=== PATIENT | male | born 1950 | race Native Hawaiian/Other Pacific Islander ===

== ENCOUNTER 2017-01-18 12:38 | Inpatient (IN) | payer OTHER ==
[2017-01-18] MEDS ORDERED: Sodium Chloride 0.9% 500 ML IV ONE ×2 (13:27→13:38)
--- NOTE | 2017-01-18 13:48 | RAD ---
PROCEDURE: Radiographs of the chest and abdomen (obstructive series) HISTORY: RUQ pain COMPARISON: No prior. TECHNIQUE: AP radiograph of the chest, with upright and supine radiographs of the abdomen. FINDINGS: CHEST: Lungs: Shallow lung volumes. Probable minimal discoid atelectatic changes left lung base Cardiovascular: Mild cardiomegaly No pulmonary vascular congestion. Pleura: No pleural fluid. No pneumothorax. Other findings: None. ABDOMEN AND PELVIS: Bowel: Moderate gas in top-normal small bowel loops. Gas and stool in colon especially cecum. No evidence of mechanical obstruction. Free air: None. Bones: Prominent scoliosis lumbar level convexity rightward. Lumbar spondylosis L2-3 and L3-4 disc space narrowing Other findings: Central right hemipelvic phleboliths IMPRESSION: Nonspecific bowel gas pattern. No gross mechanical high-grade obstruction. Moderate right cecal stool retention. No infiltrate. Trace discoid atelectasis left lung base Scoliosis, spondylosis and degenerative disc disease - lumbar level
[2017-01-18 13:53] LABS: BASO % 0.2 % (0.0-2.0); EOS % 0.1 % (0.0-4.0); HEMATOCRIT 44.1 % (35.0-51.0); LYMPH # 0.8 K/uL (1.0-4.3); LYMPH % 4.8 % (20.0-40.0); MEAN CELL VOLUME 89.9 fL (80.0-94.0); MEAN CORPUSCULAR HEMOGLOBIN 31.1 pg (27.0-31.0); MEAN CORPUSCULAR HGB CONC 34.6 g/dL (33.0-37.0); MEAN PLATELET VOLUME 8.9 fL (7.2-11.7); MONO # 1.4 K/uL (0.0-0.8); MONO % 8.3 % (0.0-10.0); NRBC % 0.2 % (0.0-2.0); PLATELET COUNT 233 K/uL (130-400); RED CELL DISTRIBUTION WIDTH 12.9 % (11.5-14.5); WHITE BLOOD COUNT 17.3 K/uL (4.8-10.8)
[2017-01-18 14:00] LABS: INR 1.1
[2017-01-18 14:01] LABS: CHLORIDE 89 mmol/L (98-107); POTASSIUM 3.7 mmol/L (3.6-5.2); SODIUM 133 mmol/L (132-148)
[2017-01-18 14:03] LABS: ALB/GLOB RATIO 1.2 (1.0-2.1); ALKALINE PHOSPHATASE 66 U/L (38-126); AST/SGOT 31 U/L (17-59); BILIRUBIN,TOTAL 1.4 mg/dL (0.2-1.3); BLOOD UREA NITROGEN 12 mg/dL (9-20); CARBON DIOXIDE 28 mmol/L (22-30); GFR AFRICAN-AMERICAN > 60
[2017-01-18 14:04] LABS: ALT/SGPT 45 U/L (21-72); CALCIUM 9.3 mg/dl (8.6-10.4); GLUCOSE,RANDOM 188 mg/dL (75-110)
[2017-01-18 14:11] LABS: RBC URINE 4 /hpf (0-3); URINE BILIRUBIN NEGATIVE (NEGATIVE); URINE BLOOD 1+ (NEGATIVE); URINE COLOR Yellow (YELLOW); URINE GLUCOSE (UA) 3+ mg/dL (Normal); URINE KETONE TRACE mg/dL (NEGATIVE); URINE LEUKOCYTE ESTERASE NEG Leu/uL (Negative); URINE PROTEIN NEGATIVE (NEGATIVE); URINE UROBILINOGEN NORMAL mg/dL (0.2-1.0); WBC URINE 1 /hpf (0-5)
[2017-01-18] MEDS ORDERED: Iohexol 240 (50 ml) PO STA (14:31)
[2017-01-18] MEDS ORDERED: Iohexol 240 (50 ml) ONE (14:50)
[2017-01-18 15:48] LABS: NEUTROPHIL 88 % (50-75); TOTAL CELLS COUNTED 100
[2017-01-18] MEDS ORDERED: Iohexol 350mg/ml 100 ML ONE (16:04)
--- NOTE | 2017-01-18 17:18 | CT ---
PROCEDURE: CT Abdomen and Pelvis with oral and IV contrast. HISTORY: abd pain COMPARISON: Obstructive series performed 01/18/17 TECHNIQUE: Contiguous axial images of the abdomen and pelvis. Oral and IV contrast was administered. Coronal and Sagittal reformats generated and reviewed. Contrast dose: 100 cc Omnipaque 350 Radiation dose: Total exam DLP = 425.43 mGy-cm. This CT exam was performed using one or more of the following dose reduction techniques: Automated exposure control, adjustment of the mA and/or kV according to patient size, and/or use of iterative reconstruction technique. FINDINGS: LOWER THORAX: Bibasilar atelectasis/infiltrates. No visible pleural effusion or pneumothorax. LIVER: Hypoattenuation of the liver compatible with hepatic steatosis. GALLBLADDER AND BILE DUCTS: Distended gallbladder. No calcified gallstones identified. PANCREAS: Unremarkable. SPLEEN: Unremarkable. ADRENALS: Nodular hypertrophy of the left adrenal gland. The right adrenal gland appears unremarkable. KIDNEYS AND URETERS: The kidneys enhance symmetrically. No hydronephrosis or obstructing renal calculus. BLADDER: The urinary bladder appears unremarkable. REPRODUCTIVE: Prostate gland appears enlarged. APPENDIX: The appendix appears within normal limits of caliber. No secondary signs of acute appendicitis. BOWEL: The stomach is nondistended. The bowel loops appear within normal limits of caliber without evidence of intestinal obstruction. Moderate constipation. PERITONEUM: No significant free fluid. No definite free air. LYMPH NODES: No bulky lymphadenopathy identified. VASCULATURE: Atherosclerotic calcifications. No aortic aneurysm. BONES: Scoliosis. Multilevel degenerative changes. OTHER FINDINGS: None. IMPRESSION: Bibasilar atelectasis/ infiltrates. Hepatic steatosis. Distended gallbladder. No calcified gallstones identified. Recommend right upper quadrant ultrasound for further evaluation. Nodular hypertrophy of the left adrenal gland. Moderate constipation. Enlarged prostate gland. Recommend correlation with PSA.
--- NOTE | 2017-01-18 18:29 | US ---
HISTORY: RUQ pain COMPARISON: CT abdomen and pelvis with contrast performed 01/18/17 TECHNIQUE: Sonographic evaluation of the right upper quadrant of the abdomen. FINDINGS: Examination limited by bowel gas. LIVER: Measures 14.9 cm in length. Echogenic liver may be seen in setting of hepatic parenchymal disease or fatty infiltration. No focal hepatic mass identified. The main portal vein appears patent with normal directional flow. No intrahepatic bile duct dilatation. GALLBLADDER: Immobile gallstone at the gallbladder neck. No gallbladder wall thickening or pericholecystic edema. Negative sonographic Li's sign as assessed by the evp and chief operating officer. COMMON BILE DUCT: Measures 4 mm. No stones. No dilatation. PANCREAS: Not well-visualized. RIGHT KIDNEY: Measures 10.1 x 4.9 x 5.3 cm. No obstructing calculus or hydronephrosis identified. AORTA: Limited visualization appears grossly unremarkable. IVC: Limited visualization appears grossly unremarkable. OTHER FINDINGS: None . IMPRESSION: Examination limited by bowel gas. Immobile gallstone at the gallbladder neck. No gallbladder wall thickening or pericholecystic edema. Negative sonographic Li's sign as assessed by the evp and chief operating officer. Echogenic liver may be seen in setting of hepatic parenchymal disease or fatty infiltration.
[2017-01-18] MEDS ORDERED: Ciprofloxacin 400mg/200ml D5W 400 MG/200 ML BAG IVPB STA (18:47)
[2017-01-18] MEDS ORDERED: Ciprofloxacin 400mg/200ml D5W 400 MG/200 ML BAG IVPB ONE (19:01)
--- NOTE | 2017-01-18 20:07 | C.PDOC ---
Time Seen by Provider: 01/18/17 13:14 Chief Complaint (Nursing): Abdominal Pain History Per: Patient Onset/Duration Of Symptoms: Days (1) Current Symptoms Are (Timing): Still Present Severity: Moderate Location Of Pain/Discomfort: RUQ Quality Of Discomfort: "Pain" Associated Symptoms: Nausea Alleviating Factors: None Additional History Per: Prior Records Past Medical History Reviewed: Historical Data, Nursing Documentation, Vital Signs Vital Signs: Last Vital Signs Temp 98.5 F 01/18/17 18:32 Pulse 88 01/18/17 18:32 Resp 16 01/18/17 18:32 BP 132/74 01/18/17 18:32 Pulse Ox 96 01/18/17 20:07 - Medical History PMH: Diabetes, HTN Surgical History: No Surg Hx Family History: States: Unknown Family Hx - Social History Hx Alcohol Use: Yes Hx Substance Use: No Review Of Systems Except As Marked, All Systems Reviewed And Found Negative. Constitutional: Negative for: Fever, Weakness Cardiovascular: Negative for: Chest Pain Respiratory: Negative for: Shortness of Breath Gastrointestinal: Positive for: Abdominal Pain Genitourinary: Negative for: Dysuria Musculoskeletal: Negative for: Neck Pain Skin: Negative for: Rash Neurological: Negative for: Weakness, Numbness Physical Exam - Physical Exam Appears: Non-toxic, No Acute Distress Skin: Normal Color, Warm, Dry, No Rash Head: Atraumatic, Normacephalic Eye(s): bilateral: Normal Inspection, PERRL, EOMI Neck: Normal ROM, Supple Cardiovascular: Rhythm Regular Respiratory: Normal Breath Sounds, No Accessory Muscle Use Gastrointestinal/Abdominal: Soft, Tenderness (RUQ) Back: No CVA Tenderness Extremity: Normal ROM Neurological/Psych: Oriented x3, Normal Motor, Normal Sensation ED Course And Treatment - Laboratory Results Result Diagrams: 01/18/17 13:46 01/18/17 13:46 Lab Interpretation: Abnormal Interpretation Of Abnormal: Leukocytosis O2 Sat by Pulse Oximetry: 96 Pulse Ox Interpretation: Normal - CT Scan/US CT abd/pelv Other Rad Studies (CT/US): Read By Radiologist, Radiology Report Reviewed CT/US Interpretation: IMPRESSION: Bibasilar atelectasis/ infiltrates. Hepatic steatosis. Distended gallbladder. No calcified gallstones identified. Recommend right upper quadrant ultrasound for further evaluation. Nodular hypertrophy of the left adrenal gland. Moderate constipation. Enlarged prostate gland. Recommend correlation with PSA. RUQ Sono Other Rad Studies (CT/US): Read By Radiologist, Radiology Report Reviewed CT/US Interpretation: IMPRESSION: Examination limited by bowel gas. Immobile gallstone at the gallbladder neck. No gallbladder wall thickening or pericholecystic edema. Negative sonographic Li's sign as assessed by the buyer broker. Echogenic liver may be seen in setting of hepatic parenchymal disease or fatty infiltration. Disposition Discussed With DrAruna: Bryce Mcgrath Comment: He accepted pt on hospitalist service. He will consult general surgeon. Doctor Will See Patient In The: Hospital Counseled Patient/Family Regarding: Studies Performed, Diagnosis - Disposition Disposition: HOSPITALIZED Disposition Time: 20:19 Condition: FAIR - Clinical Impression Clinical Impression: Impacted gallstone of gallbladder, Leukocytosis, RUQ abdominal pain
[2017-01-18] MEDS ORDERED: Sodium Chloride 0.9% 1,000 ML IV SCH (21:00)
[2017-01-18] MEDS ORDERED: Ciprofloxacin 400mg/200ml D5W 400 MG/200 ML BAG IVPB SCH (21:00)
--- NOTE | 2017-01-18 21:32 | CP.PCM.HP ---
<Girma Maldonado E - Last Filed: 01/18/17 22:53> History of Present Illness - History of Present Illness History of Present Illness: CC: RUQ abdominal Pain HPI: Patient is a 66 year old male with past medical history of DM and HTN, who presents to the ED with complaints of RUQ abdominal pain that started yesterday morning. Patient is unable to describe his pain but states his pain is a constant 6/10 without any radiation and has progressively worsened. Patient states that his pain is alleviated with standing and frequent positional changes and nothing worsens his pain. Patient denies exacerbation of his pain with eating. Patient denies fever, chills, nausea, vomiting, chest pain, palpitations, diaphoresis, SOB, diarrhea, constipation, stool changes, back pain , shoulder pain, skin color changes but did admit to night sweats and heart burn. PMD: Dr. Soni PMHx: DM, HTN PSHx: Right forearm cyst removal FHx: - Father: CVA, -Sister: Rheumatic heart disease, DM type 2 - Brother: DM type 2 Medications: Metformin 500mg BID, Cozaar 100mg PO daily Allergies: NKDA Social History: Lives with his , daughter and son-in-law . retired senior quality analyst/ warehouse shipment clergy. Denies tobacco and illicit drug use but admits occasional ETOH (2-3 beers on the weekend) Medications given in the ED: Cipro 400mg IVPB, Pepcid 20mg IV, Toradol 30mg IV, Reglan 10mg IV and NS 500mls@100mls/hr Present on Admission - Present on Admission Any Indicators Present on Admission: No Review of Systems - Constitutional Constitutional: Night Sweats. absent: Chills, Excessive Sweating, Fever, Headache - EENT Eyes: absent: Itchy Eyes Ears: absent: Dizziness - Cardiovascular Cardiovascular: absent: Chest Pain, Diaphoresis, Dyspnea, Lightheadedness, Palpitations, Radiating Pain - Respiratory Respiratory: absent: Dyspnea - Gastrointestinal Gastrointestinal: Abdominal Pain, Heartburn. absent: Change in Bowel Habits, Change in Stool Character, Constipation, Cramping, Diarrhea, Nausea, Vomiting - Genitourinary Genitourinary: Change in Urinary Stream, Dysuria. absent: Flank Pain, Urinary Frequency, Urinary Urgency - Musculoskeletal Musculoskeletal: absent: Back Pain - Integumentary Integumentary: absent: Pruritus, Jaundice - Neurological Neurological: absent: Dizziness, Headaches, Weakness Past Patient History - Infectious Disease Hx of Infectious Diseases: None - Past Social History Smoking Status: Never Smoked - CARDIAC Hx Hypertension: Yes - ENDOCRINE/METABOLIC Hx Endocrine Disorders: Yes Hx Diabetes Mellitus Type 2: Yes - PSYCHIATRIC Hx Substance Use: No - SURGICAL HISTORY Hx Surgeries: No Meds Allergies/Adverse Reactions: Allergies Allergy/AdvReac Type Severity Reaction Status Date / Time No Known Allergies Allergy Verified 01/18/17 12:43 Physical Exam - Constitutional Appears: No Acute Distress - Head Exam Head Exam: ATRAUMATIC, NORMAL INSPECTION - Eye Exam Eye Exam: EOMI, Normal appearance Additional comments: Icterus absent - ENT Exam ENT Exam: Mucous Membranes Moist, Normal Exam - Respiratory Exam Respiratory Exam: Clear to Auscultation Bilateral, NORMAL BREATHING PATTERN. absent: Rales, Wheezes - Cardiovascular Exam Cardiovascular Exam: REGULAR RHYTHM, +S1, +S2 - GI/Abdominal Exam GI & Abdominal Exam: Normal Bowel Sounds, Soft Additional comments: RUQ pain Negative li sign - Extremities Exam Extremities exam: Positive for: normal capillary refill, normal inspection. Negative for: calf tenderness, pedal edema, tenderness - Back Exam Back exam: absent: CVA tenderness (L), CVA tenderness (R) - Neurological Exam Neurological exam: Alert, Oriented x3 - Psychiatric Exam Psychiatric exam: Normal Affect, Normal Mood - Skin Skin Exam: Dry, Normal Color, Warm Results - Vital Signs Recent Vital Signs: Last Vital Signs Temp 97.9 F 01/18/17 21:01 Pulse 80 01/18/17 21:01 Resp 18 01/18/17 21:01 BP 116/63 01/18/17 21:01 Pulse Ox 95 01/18/17 21:01 - Labs Result Diagrams: 01/18/17 13:46 01/18/17 13:46 Assessment & Plan (1) RUQ abdominal pain Assessment and Plan: Surgical consult ---> Dr. Morris ( Help appreciated) Stable, Afebrile NPO Labs: WBC: 17.3 Neutrophils % : 86.8 AST/ALT: 31/45 Alk Phosp: 66 Total Bilirubin: 1.4 Imagin. Abdomen Obstructive Series X-ray:Nonspecific bowel gas pattern. No gross mechanical high-grade obstruction. Moderate right cecal stool retention. 2. Abdomen/Pelvis CT:Hepatic steatosis. * Distended gallbladder. No calcified gallstones identified. Recommend right upper quadrant ultrasound for further evaluation. * Nodular hypertrophy of the left adrenal gland. * Moderate constipation. * Enlarged prostate gland. Recommend correlation with PSA. 3. Abdomen Ultrasound: Immobile gallstone at the gallbladder neck. No gallbladder wall thickening or pericholecystic edema. Negative sonographic Li's sign as assessed by the ornamental rail installer. * Echogenic liver may be seen in setting of hepatic parenchymal disease or fatty infiltration Medications: * Cipro 400mg IVPB Q12H * Flagyl 500mg IVPB Q8H * Toradol 30mg IVP Q6 PRN * NS @ 80mls/hr Status: Acute (2) Leukocytosis Assessment and Plan: On admission: * WBC: 17.3 Medications: * Cipro 400mg IVPB Q12H * Flagyl 500mg IVPB Q8H Continue to monitor with routine CBC Status: Acute (3) Hypertension Assessment and Plan: Continue home medication: * Cozaar 100mg PO daily * Continue to monitor with vital checks q4h Status: Acute (4) Diabetes mellitus Assessment and Plan: Accu checks Hold home medication: * Metformin 500mg PO BID Status: Acute (5) Prophylactic measure Assessment and Plan: Ambulating Scds Pepcid 20mg PO BID Florastor 250mg PO BID Status: Acute <Bryce Mcgrath P - Last Filed: 01/29/17 19:31> Results - Vital Signs Recent Vital Signs: Last Vital Signs Temp 98.7 F 01/20/17 15:00 Pulse 84 01/20/17 15:00 Resp 20 01/20/17 15:00 BP 136/78 01/20/17 15:00 Pulse Ox 96 01/20/17 15:00 - Labs Result Diagrams: 01/20/17 06:57 01/20/17 06:57 Attending/Attestation - Attestation I have personally seen and examined this patient.: Yes I have fully participated in the care of the patient.: Yes I have reviewed all pertinent clinical information: Yes
[2017-01-18] MEDS: metroNIDAZOLE IV 500 mg/100 ml 500 MG/100 ML BAG IVPB SCH (21:40)
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
[2017-01-19] MEDS: metroNIDAZOLE IV 500 mg/100 ml 500 MG/100 ML BAG IVPB SCH ×3 (05:52→21:17)
[2017-01-19 06:38] LABS: BASO # 0.1 K/uL (0.0-0.2); BASO % 0.4 % (0.0-2.0); EOS # 0.1 K/uL (0.0-0.7); EOS % 0.7 % (0.0-4.0); HEMATOCRIT 39.5 % (35.0-51.0); LYMPH # 0.9 K/uL (1.0-4.3); LYMPH % 6.3 % (20.0-40.0); MEAN CELL VOLUME 89.5 fL (80.0-94.0); MEAN CORPUSCULAR HGB CONC 34.7 g/dL (33.0-37.0); MEAN PLATELET VOLUME 8.9 fL (7.2-11.7); MONO # 1.4 K/uL (0.0-0.8); MONO % 9.8 % (0.0-10.0); PLATELET COUNT 179 K/uL (130-400); RED CELL DISTRIBUTION WIDTH 12.9 % (11.5-14.5); WHITE BLOOD COUNT 14.2 K/uL (4.8-10.8)
[2017-01-19 06:58] LABS: ALB/GLOB RATIO 1.2 (1.0-2.1); ALKALINE PHOSPHATASE 72 U/L (38-126); ALT/SGPT 42 U/L (21-72); AST/SGOT 35 U/L (17-59); BILIRUBIN,TOTAL 1.7 mg/dL (0.2-1.3); BLOOD UREA NITROGEN 9 mg/dL (9-20); CALCIUM 8.6 mg/dl (8.6-10.4); CARBON DIOXIDE 24 mmol/L (22-30); CHLORIDE 93 mmol/L (98-107); GFR AFRICAN-AMERICAN > 60; GLUCOSE,RANDOM 135 mg/dL (75-110); POTASSIUM 3.3 mmol/L (3.6-5.2); SODIUM 129 mmol/L (132-148); TOTAL PROTEIN 6.4 g/dL (6.3-8.3)
[2017-01-19] MEDS: Ciprofloxacin 400mg/200ml D5W 400 MG/200 ML BAG IVPB SCH ×2 (07:30→19:12)
[2017-01-19 08:38] LABS: EOSINOPHIL 2 % (0-4); NEUTROPHIL 82 % (50-75); TOTAL CELLS COUNTED 100
[2017-01-19] MEDS ORDERED: Lactated Ringer's 1,000 ML IV ONE (15:35)
[2017-01-19] MEDS ORDERED: Midazolam 2 MG/2 ML VIAL ONE (15:36)
[2017-01-19] MEDS ORDERED: Propofol 10 mg/ml Inj (20 ML) ONE (15:36)
[2017-01-19] MEDS ORDERED: Ciprofloxacin 400mg/200ml D5W 400 MG/200 ML BAG IVPB ONE (15:50)
[2017-01-19] MEDS ORDERED: Rocuronium 10 mg/ml (5 ml) ONE (16:05)
[2017-01-19] MEDS ORDERED: Succinylcholine Chloride 20 mg/ml Syr (5 ml) IV ONE (16:05)
[2017-01-19] MEDS ORDERED: HYDROmorphone 0.5 mg/0.5 ml ISec IVP PRN ×2 (16:24→17:13)
[2017-01-19] MEDS ORDERED: Neostigmine Methylsulfate 3mg/3ml Syringe IV ONE (17:05)
--- NOTE | 2017-01-19 17:08 | PCM.SURG1 ---
Surgeon's Initial Post Op Note - Surgeon's Notes Surgeon: MD Arturo Blue Crabber: SOFI BurgessY2. SOFI SinY2. Mauricio, MS4 Pre-Operative Diagnosis: Cholecystitis Operative Findings: inflammed gallbladder Post-Operative Diagnosis: same Operation Performed: Laparoscopic cholecystectomy Specimen/Specimens Removed: gallbladder Estimated Blood Loss: EBL {In ML}: 30 Date of Surgery/Procedure: 01/19/17 Time of Surgery/Procedure: 16:00
[2017-01-19] MEDS ORDERED: HYDROmorphone 1 mg/ml ISec IVP PRN (17:11)
--- NOTE | 2017-01-19 20:23 | CARD ---
APPROVED REPORT EKG Measurement Heart [id number] <Conclusion> Normal sinus rhythm Possible Left atrial enlargement Inferior infarct, age undetermined Abnormal ECG
[2017-01-19] MEDS: (Novolin R) Insulin Human Regular 100 units/ml vial SC SCH ×2 (21:13→21:19)
--- NOTE | 2017-01-19 21:14 | CP.PCM.PN ---
<Misha Corea - Last Filed: 01/19/17 21:12> Subjective - Date & Time of Evaluation Date of Evaluation: 01/19/17 Time of Evaluation: 21:12 - Subjective Subjective: PGY1 Note for Dr. Valenzuela HPI: Patient seen and examined at bedside. Doing well. His only complaint is abdominal pain. States surgery team was in to see him and said they would be taking him to the OR today to take his GB out. All of the patient questions were answered about the procedure and he agreed with the plan Objective - Vital Signs/Intake and Output Vital Signs (last 24 hours): Temp Pulse Resp BP Pulse Ox 98.6 F 95 H 24 134/69 97 01/19/17 19:08 01/19/17 18:00 01/19/17 18:00 01/19/17 17:45 01/19/17 18:00 Intake and Output: 01/19/17 01/20/17 18:59 06:59 Intake Total 1040 Output Total 300 Balance 740 - Medications Medications: Current Medications Acetaminophen (Tylenol 325mg Tab) 975 mg PO Q8 [facility] Last Admin: 01/19/17 19:08 Dose: 975 mg Docusate Sodium (Colace) 100 mg PO DAILY [facility] Last Admin: 01/19/17 09:20 Dose: 100 mg Famotidine (Pepcid) 20 mg PO BID [facility] Last Admin: 01/19/17 19:08 Dose: 20 mg Hydromorphone HCl (Dilaudid) 0.5 mg IVP Q4H PRN PRN Reason: Pain, severe (8-10) Metronidazole (Flagyl) 500 mg in 100 mls @ 100 mls/hr IVPB Q8 [facility] Last Admin: 01/19/17 13:56 Dose: 100 mls/hr Ciprofloxacin (Cipro 400mg/200ml Dsw) 400 mg in 200 mls @ 133 mls/hr IVPB Q12H [facility] Last Admin: 01/19/17 19:12 Dose: 133 mls/hr Potassium Chloride 40 meq/ (Sodium Chloride) 1,020 mls @ 80 mls/hr IV .[id number] [facility] Last Admin: 01/19/17 09:20 Dose: 80 mls/hr Insulin Human Regular (Novolin R) 0 unit SC ACHS [facility] PRN Reason: Protocol Ketorolac Tromethamine (Toradol) 30 mg IVP Q6 PRN PRN Reason: Pain, moderate (4-7) Losartan Potassium (Cozaar) 100 mg PO DAILY [facility] Last Admin: 01/19/17 09:18 Dose: 100 mg - Labs Labs: 01/19/17 06:29 01/19/17 06:29 PT 12.6 SECONDS (9.7-12.2) H 01/18/17 13:46 INR 1.1 01/18/17 13:46 APTT 31 SECONDS (21-34) 01/18/17 13:46 - Constitutional Appears: Well, Non-toxic, No Acute Distress - Head Exam Head Exam: NORMAL INSPECTION - Eye Exam Eye Exam: EOMI - ENT Exam ENT Exam: Mucous Membranes Moist - Respiratory Exam Respiratory Exam: Clear to Ausculation Bilateral, NORMAL BREATHING PATTERN - Cardiovascular Exam Cardiovascular Exam: REGULAR RHYTHM - GI/Abdominal Exam GI & Abdominal Exam: Soft, Tenderness (severe tendernes to palpation in the RUQ) , Normal Bowel Sounds. absent: Distended - Neurological Exam Neurological Exam: Alert, Awake, Oriented x3 - Psychiatric Exam Psychiatric exam: Normal Affect, Normal Mood - Skin Skin Exam: Dry, Intact, Normal Color, Warm Assessment and Plan - Assessment and Plan (Free Text) Assessment: RUQ abdominal pain * Surgery (Morris) * Lap guadalupe today * Abdomen/Pelvis CT: Distended gallbladder. No calcified gallstones identified. * Abdomen Ultrasound: Immobile gallstone at the gallbladder neck. No gallbladder wall thickening or pericholecystic edema. Enlarged Prostate * F/U PSA Constipation * Colace 100 BID Leukocytosis * Cipro 400mg IVPB Q12H * Flagyl 500mg IVPB Q8H Hypertension * Cozaar 100mg PO daily Diabetes mellitus * Accu checks Q6 * Low dose Sliding scale Prophylactic measure * Ambulating * Scds * Pepcid 20mg PO BID * Florastor 250mg PO BID <Audie Valenzuela - Last Filed: 01/20/17 16:59> Objective - Vital Signs/Intake and Output Vital Signs (last 24 hours): Temp Pulse Resp BP Pulse Ox 98.7 F 84 20 136/78 96 01/20/17 15:00 01/20/17 15:00 01/20/17 15:00 01/20/17 15:00 01/20/17 15:00 Intake and Output: 08/31/17 08/31/17 06:59 18:59 Intake Total 760 1440 Balance 760 1440 - Medications Medications: Current Medications Acetaminophen (Tylenol 325mg Tab) 975 mg PO Q8 [facility] Last Admin: 01/20/17 13:14 Dose: 975 mg Docusate Sodium (Colace) 100 mg PO DAILY [facility] Last Admin: 01/20/17 09:20 Dose: 100 mg Famotidine (Pepcid) 20 mg PO BID [facility] Last Admin: 01/20/17 09:21 Dose: 20 mg Hydromorphone HCl (Dilaudid) 0.5 mg IVP Q4H PRN PRN Reason: Pain, severe (8-10) Metronidazole (Flagyl) 500 mg in 100 mls @ 100 mls/hr IVPB Q8 [facility] Last Admin: 01/20/17 13:17 Dose: 100 mls/hr Ciprofloxacin (Cipro 400mg/200ml Dsw) 400 mg in 200 mls @ 133 mls/hr IVPB Q12H [facility] Last Admin: 01/20/17 06:10 Dose: 133 mls/hr Potassium Chloride 40 meq/ (Sodium Chloride) 1,020 mls @ 80 mls/hr IV .[id number] [facility] Last Admin: 01/20/17 06:10 Dose: 80 mls/hr Insulin Human Regular (Novolin R) 0 unit SC ACHS [facility] PRN Reason: Protocol Last Admin: 01/20/17 11:19 Dose: 2 unit Ketorolac Tromethamine (Toradol) 30 mg IVP Q6 PRN PRN Reason: Pain, moderate (4-7) Losartan Potassium (Cozaar) 100 mg PO DAILY [facility] Last Admin: 01/20/17 09:20 Dose: 100 mg - Labs Labs: 01/20/17 06:57 01/20/17 06:57 PT 12.6 SECONDS (9.7-12.2) H 01/18/17 13:46 INR 1.1 01/18/17 13:46 APTT 31 SECONDS (21-34) 01/18/17 13:46 Attending/Attestation - Attestation I have personally seen and examined this patient.: Yes I have fully participated in the care of the patient.: Yes I have reviewed all pertinent clinical information, including history, physical exam and plan: Yes Notes (Text): 01/20/17 16:58 Patient was seen and examined at bedside with the resident Plan for surgery today Patient is medically cleared for the surgical procedure I discussed the plan of care with the resident and agree with the assessment and plan documented
[2017-01-20 00:56] VITALS: RESP 20
[2017-01-20] MEDS: metroNIDAZOLE IV 500 mg/100 ml 500 MG/100 ML BAG IVPB SCH ×2 (05:22→13:17)
[2017-01-20] MEDS: Ciprofloxacin 400mg/200ml D5W 400 MG/200 ML BAG IVPB SCH (06:10)
[2017-01-20 07:12] LABS: BASO % 0.1 % (0.0-2.0); EOS # 0.1 K/uL (0.0-0.7); EOS % 1.2 % (0.0-4.0); HEMATOCRIT 38.5 % (35.0-51.0); LYMPH # 0.7 K/uL (1.0-4.3); LYMPH % 7.8 % (20.0-40.0); MEAN CELL VOLUME 90.4 fL (80.0-94.0); MEAN CORPUSCULAR HGB CONC 34.2 g/dL (33.0-37.0); MEAN PLATELET VOLUME 8.6 fL (7.2-11.7); MONO # 1.2 K/uL (0.0-0.8); MONO % 12.8 % (0.0-10.0); PLATELET COUNT 188 K/uL (130-400); WHITE BLOOD COUNT 9.2 K/uL (4.8-10.8)
[2017-01-20 07:44] LABS: CHLORIDE 99 mmol/L (98-107); POTASSIUM 3.8 mmol/L (3.6-5.2); SODIUM 135 mmol/L (132-148)
[2017-01-20 07:47] LABS: ALKALINE PHOSPHATASE 65 U/L (38-126); ALT/SGPT 62 U/L (21-72); AST/SGOT 53 U/L (17-59); BILIRUBIN,TOTAL 1.2 mg/dL (0.2-1.3); BLOOD UREA NITROGEN 10 mg/dL (9-20); CARBON DIOXIDE 24 mmol/L (22-30); GFR AFRICAN-AMERICAN > 60; GLUCOSE,RANDOM 144 mg/dL (75-110); TOTAL PROTEIN 6.1 g/dL (6.3-8.3)
[2017-01-20 07:48] LABS: CALCIUM 8.1 mg/dl (8.6-10.4)
[2017-01-20] MEDS: (Novolin R) Insulin Human Regular 100 units/ml vial SC SCH ×2 (07:49→11:19)
[2017-01-20 08:15] LABS: PROSTATE SPECIFIC ANTIGEN 0.508 ng/mL (0.00-4.0)
--- NOTE | 2017-01-20 08:20 | CP.PCM.PN ---
Subjective - Date & Time of Evaluation Date of Evaluation: 01/20/17 Time of Evaluation: 08:17 - Subjective Subjective: General Surgery - Dr. Morris Pt S&E. LYNNE. Pt doing well post-operatively. He ambulated twice in the hallway last night. He is tolerating regular diet. Pain is mild and well controled. No F/C, SOb/Cp, N/V. Objective - Vital Signs/Intake and Output Vital Signs (last 24 hours): Temp Pulse Resp BP Pulse Ox 98.6 F 88 20 131/79 95 01/20/17 07:14 01/20/17 07:14 01/20/17 07:14 01/20/17 07:14 01/20/17 07:14 Intake and Output: 01/20/17 01/20/17 06:59 18:59 Intake Total 760 Balance 760 - Medications Medications: Current Medications Acetaminophen (Tylenol 325mg Tab) 975 mg PO Q8 [facility] Last Admin: 01/20/17 05:22 Dose: 975 mg Docusate Sodium (Colace) 100 mg PO DAILY [facility] Last Admin: 01/19/17 09:20 Dose: 100 mg Famotidine (Pepcid) 20 mg PO BID [facility] Last Admin: 01/19/17 19:08 Dose: 20 mg Hydromorphone HCl (Dilaudid) 0.5 mg IVP Q4H PRN PRN Reason: Pain, severe (8-10) Metronidazole (Flagyl) 500 mg in 100 mls @ 100 mls/hr IVPB Q8 [facility] Last Admin: 01/20/17 05:22 Dose: 100 mls/hr Ciprofloxacin (Cipro 400mg/200ml Dsw) 400 mg in 200 mls @ 133 mls/hr IVPB Q12H [facility] Last Admin: 01/20/17 06:10 Dose: 133 mls/hr Potassium Chloride 40 meq/ (Sodium Chloride) 1,020 mls @ 80 mls/hr IV .[id number] [facility] Last Admin: 01/20/17 06:10 Dose: 80 mls/hr Insulin Human Regular (Novolin R) 0 unit SC ACHS [facility] PRN Reason: Protocol Last Admin: 01/20/17 07:49 Dose: 1 unit Ketorolac Tromethamine (Toradol) 30 mg IVP Q6 PRN PRN Reason: Pain, moderate (4-7) Losartan Potassium (Cozaar) 100 mg PO DAILY [facility] Last Admin: 01/19/17 09:18 Dose: 100 mg - Labs Labs: 01/20/17 06:57 01/20/17 06:57 PT 12.6 SECONDS (9.7-12.2) H 01/18/17 13:46 INR 1.1 01/18/17 13:46 APTT 31 SECONDS (21-34) 01/18/17 13:46 - Constitutional Appears: No Acute Distress - Head Exam Head Exam: ATRAUMATIC, NORMAL INSPECTION, NORMOCEPHALIC - Eye Exam Eye Exam: Normal appearance - Respiratory Exam Respiratory Exam: NORMAL BREATHING PATTERN. absent: Respiratory Distress - GI/Abdominal Exam GI & Abdominal Exam: Soft. absent: Distended, Guarding, Rigid, Tenderness, Rebound Additional comments: small drainage on umbilical dressing, otherwise C/D/I - Neurological Exam Neurological Exam: Alert, Oriented x3 - Psychiatric Exam Psychiatric exam: Normal Affect, Normal Mood - Skin Skin Exam: Dry, Intact Assessment and Plan - Assessment and Plan (Free Text) Assessment: 66yo M s/p lap guadalupe pod1 -Doing well post-op -Tolerating diet, Ambulating, Pain well controlled -Labs reviewed and WNL -Clear fro D/C from surgical standpoint -Pt may remove dressings tomorrow and may shower. No soaking or bathing. No heavy lifting >10lbs for 3weeks. Followup in office w/ Dr. Morris in [address] Arturo Farley PGy3
[2017-01-20 08:49] LABS: TOTAL CELLS COUNTED 100
[2017-01-20 08:50] LABS: NEUTROPHIL 79 % (50-75)
--- NOTE | 2017-01-20 12:00 | CP.PCM.DIS ---
<Misha Corea - Last Filed: 01/20/17 19:11> Provider - Provider Date of Admission: 01/18/17 20:20 Attending physician: Bryce Mcgrath MD Primary care physician: Nae Consults: Surgery: Arturo Time Spent in preparation of Discharge (in minutes): 35 Hospital Course - Lab Results Lab Results: Most Recent Lab Values WBC 9.2 K/uL (4.8-10.8) 01/20/17 06:57 RBC 4.25 Mil/uL (4.40-5.90) L 01/20/17 06:57 Hgb 13.2 g/dL (12.0-18.0) 01/20/17 06:57 Hct 38.5 % (35.0-51.0) 01/20/17 06:57 MCV 90.4 fL (80.0-94.0) 01/20/17 06:57 MCH 31.0 pg (27.0-31.0) 01/20/17 06:57 MCHC 34.2 g/dL (33.0-37.0) 01/20/17 06:57 RDW 13.0 % (11.5-14.5) 01/20/17 06:57 Plt Count 188 K/uL (130-400) 01/20/17 06:57 MPV 8.6 fL (7.2-11.7) 01/20/17 06:57 Neut % (Auto) 78.1 % (50.0-75.0) H 01/20/17 06:57 Lymph % (Auto) 7.8 % (20.0-40.0) L 01/20/17 06:57 Prentiss % (Auto) 12.8 % (0.0-10.0) H 01/20/17 06:57 Eos % (Auto) 1.2 % (0.0-4.0) 01/20/17 06:57 Baso % (Auto) 0.1 % (0.0-2.0) 01/20/17 06:57 Neut # 7.2 K/uL (1.8-7.0) H 01/20/17 06:57 Lymph # 0.7 K/uL (1.0-4.3) L 01/20/17 06:57 Prentiss # 1.2 K/uL (0.0-0.8) H 01/20/17 06:57 Eos # 0.1 K/uL (0.0-0.7) 01/20/17 06:57 Baso # 0.0 K/uL (0.0-0.2) 01/20/17 06:57 Neutrophils % (Manual) 79 % (50-75) H 01/20/17 06:57 Lymphocytes % (Manual) 9 % (20-40) L 01/20/17 06:57 Monocytes % (Manual) 12 % (0-10) H 01/20/17 06:57 Eosinophils % (Manual) 2 % (0-4) 01/19/17 06:29 Platelet Estimate Normal (NORMAL) 01/20/17 06:57 RBC Morphology Normal 01/20/17 06:57 PT 12.6 SECONDS (9.7-12.2) H 01/18/17 13:46 INR 1.1 01/18/17 13:46 APTT 31 SECONDS (21-34) 01/18/17 13:46 Sodium 135 mmol/L (132-148) 01/20/17 06:57 Potassium 3.8 mmol/L (3.6-5.2) 01/20/17 06:57 Chloride 99 mmol/L (98-107) 01/20/17 06:57 Carbon Dioxide 24 mmol/L (22-30) 01/20/17 06:57 Anion Gap 16 (10-20) 01/20/17 06:57 BUN 10 mg/dL (9-20) 01/20/17 06:57 Creatinine 0.6 MG/DL (0.8-1.5) L 01/20/17 06:57 Est GFR ( Amer) > 60 01/20/17 06:57 Est GFR (Non-Af Amer) > 60 01/20/17 06:57 POC Glucose (mg/dL) 211 mg/dL (65-110) H 01/20/17 10:51 Random Glucose 144 mg/dL (75-110) H 01/20/17 06:57 Hemoglobin A1c 6.6 % (4.2-6.5) H 01/19/17 06:29 Calcium 8.1 mg/dl (8.6-10.4) L 01/20/17 06:57 Total Bilirubin 1.2 mg/dL (0.2-1.3) 01/20/17 06:57 AST 53 U/L (17-59) 01/20/17 06:57 ALT 62 U/L (21-72) 01/20/17 06:57 Alkaline Phosphatase 65 U/L (38-126) 01/20/17 06:57 Troponin I < 0.0120 ng/mL (0.00-0.120) 01/18/17 13:46 Total Protein 6.1 g/dL (6.3-8.3) L 01/20/17 06:57 Albumin 3.0 g/dL (3.5-5.0) L 01/20/17 06:57 Globulin 3.1 gm/dL (2.2-3.9) 01/20/17 06:57 Albumin/Globulin Ratio 1.0 (1.0-2.1) 01/20/17 06:57 Lipase 35 U/L (23-300) 01/18/17 13:46 Prostate Specific Ag 0.508 ng/mL (0.00-4.0) 01/20/17 06:57 Urine Color Yellow (YELLOW) 01/18/17 13:54 Urine Clarity Clear (Clear) 01/18/17 13:54 Urine pH 5.0 (5.0-8.0) 01/18/17 13:54 Ur Specific [place] 1.017 (1.003-1.030) 01/18/17 13:54 Urine Protein Negative mg/dL (NEGATIVE) 01/18/17 13:54 Urine Glucose (UA) 3+ mg/dL (Normal) H 01/18/17 13:54 Urine Ketones Trace mg/dL (NEGATIVE) 01/18/17 13:54 Urine Blood 1+ (NEGATIVE) H 01/18/17 13:54 Urine Nitrate Negative (NEGATIVE) 01/18/17 13:54 Urine Bilirubin Negative (NEGATIVE) 01/18/17 13:54 Urine Urobilinogen Normal mg/dL (0.2-1.0) 01/18/17 13:54 Ur Leukocyte Esterase Neg Byron/uL (Negative) 01/18/17 13:54 Urine WBC (Auto) 1 /hpf (0-5) 01/18/17 13:54 Urine RBC (Auto) 4 /hpf (0-3) H 01/18/17 13:54 - Hospital Course Hospital Course: On Admission: Patient is a 66 year old male with past medical history of DM and HTN, who presents to the ED with complaints of RUQ abdominal pain that started yesterday morning. Patient is unable to describe his pain but states his pain is a constant 6/10 without any radiation and has progressively worsened. Patient states that his pain is alleviated with standing and frequent positional changes and nothing worsens his pain. Patient denies exacerbation of his pain with eating. Patient denies fever, chills, nausea, vomiting, chest pain , palpitations, diaphoresis, SOB, diarrhea, constipation, stool changes, back pain, shoulder pain, skin color changes but did admit to night sweats and heart burn. Patient was taken for a lap guadalupe with Dr. Morris. No complications. Patient was ambulating the next day, passing gas, had a bowel movement, tolerating his diet. He was cleared from a surgery standpoint and was sent home - Date & Time of H&P Date of H&P: 01/18/17 Time of H&P: 21:28 Discharge Exam - Head Exam Head Exam: ATRAUMATIC, NORMAL INSPECTION, NORMOCEPHALIC - Eye Exam Eye Exam: EOMI - ENT Exam ENT Exam: Mucous Membranes Moist - Respiratory Exam Respiratory Exam: NORMAL BREATHING PATTERN, UNREMARKABLE - Cardiovascular Exam Cardiovascular Exam: REGULAR RHYTHM - GI/Abdominal Exam GI & Abdominal Exam: Normal Bowel Sounds, Soft. absent: Distended, Tenderness - Back Exam Back exam: absent: paraspinal tenderness - Neurological Exam Neurological exam: Alert, Oriented x3 - Psychiatric Exam Psychiatric exam: Normal Affect, Normal Mood - Skin Skin Exam: Dry, Intact, Normal Color, Warm Discharge Plan - Discharge Medications Prescriptions: Docusate [Colace] 100 mg PO DAILY #30 cap Losartan [Cozaar] 100 mg PO DAILY #30 metFORMIN [glucOPHAGE] 500 mg PO BID #60 - Follow Up Plan Condition: STABLE Disposition: HOME/ ROUTINE Instructions: Laxative, Stool Softeners (By mouth), Losartan (By mouth), Metformin (By mouth), Cholecystitis (DC), Laparoscopic Cholecystectomy (DC) Additional Instructions: From a surgical standpoint, patient is stable and clear for discharge. Please follow up in Dr. Schmitz office in one week. Please call to make an appointment. I will attach the office information. From a medical standpoint, patient is table and clear for discharge. Please follow up with your primary doctor in one week. If you don't have a medical doctor then you can come to our clinic. I have provided the information to our clinic. Please call to make an appointment Continue your home medications Take Tylenol for pain Take colace for constipation Prescriptions will be provided at discharge If symptoms return please come back to the ER. Referrals: Padma Morris MD [Staff Provider] - [facility] at [facility] [Outside] <Audie Valenzuela - Last Filed: 01/21/17 08:19> Provider - Provider Date of Admission: 01/18/17 20:20 Attending physician: Bryce Mcgrath MD Hospital Course - Lab Results Lab Results: Most Recent Lab Values WBC 9.2 K/uL (4.8-10.8) 01/20/17 06:57 RBC 4.25 Mil/uL (4.40-5.90) L 01/20/17 06:57 Hgb 13.2 g/dL (12.0-18.0) 01/20/17 06:57 Hct 38.5 % (35.0-51.0) 01/20/17 06:57 MCV 90.4 fL (80.0-94.0) 01/20/17 06:57 MCH 31.0 pg (27.0-31.0) 01/20/17 06:57 MCHC 34.2 g/dL (33.0-37.0) 01/20/17 06:57 RDW 13.0 % (11.5-14.5) 01/20/17 06:57 Plt Count 188 K/uL (130-400) 01/20/17 06:57 MPV 8.6 fL (7.2-11.7) 01/20/17 06:57 Neut % (Auto) 78.1 % (50.0-75.0) H 01/20/17 06:57 Lymph % (Auto) 7.8 % (20.0-40.0) L 01/20/17 06:57 Prentiss % (Auto) 12.8 % (0.0-10.0) H 01/20/17 06:57 Eos % (Auto) 1.2 % (0.0-4.0) 01/20/17 06:57 Baso % (Auto) 0.1 % (0.0-2.0) 01/20/17 06:57 Neut # 7.2 K/uL (1.8-7.0) H 01/20/17 06:57 Lymph # 0.7 K/uL (1.0-4.3) L 01/20/17 06:57 Prentiss # 1.2 K/uL (0.0-0.8) H 01/20/17 06:57 Eos # 0.1 K/uL (0.0-0.7) 01/20/17 06:57 Baso # 0.0 K/uL (0.0-0.2) 01/20/17 06:57 Neutrophils % (Manual) 79 % (50-75) H 01/20/17 06:57 Lymphocytes % (Manual) 9 % (20-40) L 01/20/17 06:57 Monocytes % (Manual) 12 % (0-10) H 01/20/17 06:57 Eosinophils % (Manual) 2 % (0-4) 01/19/17 06:29 Platelet Estimate Normal (NORMAL) 01/20/17 06:57 RBC Morphology Normal 01/20/17 06:57 PT 12.6 SECONDS (9.7-12.2) H 01/18/17 13:46 INR 1.1 01/18/17 13:46 APTT 31 SECONDS (21-34) 01/18/17 13:46 Sodium 135 mmol/L (132-148) 01/20/17 06:57 Potassium 3.8 mmol/L (3.6-5.2) 01/20/17 06:57 Chloride 99 mmol/L (98-107) 01/20/17 06:57 Carbon Dioxide 24 mmol/L (22-30) 01/20/17 06:57 Anion Gap 16 (10-20) 01/20/17 06:57 BUN 10 mg/dL (9-20) 01/20/17 06:57 Creatinine 0.6 MG/DL (0.8-1.5) L 01/20/17 06:57 Est GFR ( Amer) > 60 01/20/17 06:57 Est GFR (Non-Af Amer) > 60 01/20/17 06:57 POC Glucose (mg/dL) 135 mg/dL (65-110) H 01/20/17 15:58 Random Glucose 144 mg/dL (75-110) H 01/20/17 06:57 Hemoglobin A1c 6.6 % (4.2-6.5) H 01/19/17 06:29 Calcium 8.1 mg/dl (8.6-10.4) L 01/20/17 06:57 Total Bilirubin 1.2 mg/dL (0.2-1.3) 01/20/17 06:57 AST 53 U/L (17-59) 01/20/17 06:57 ALT 62 U/L (21-72) 01/20/17 06:57 Alkaline Phosphatase 65 U/L (38-126) 01/20/17 06:57 Troponin I < 0.0120 ng/mL (0.00-0.120) 01/18/17 13:46 Total Protein 6.1 g/dL (6.3-8.3) L 01/20/17 06:57 Albumin 3.0 g/dL (3.5-5.0) L 01/20/17 06:57 Globulin 3.1 gm/dL (2.2-3.9) 01/20/17 06:57 Albumin/Globulin Ratio 1.0 (1.0-2.1) 01/20/17 06:57 Lipase 35 U/L (23-300) 01/18/17 13:46 Prostate Specific Ag 0.508 ng/mL (0.00-4.0) 01/20/17 06:57 Urine Color Yellow (YELLOW) 01/18/17 13:54 Urine Clarity Clear (Clear) 01/18/17 13:54 Urine pH 5.0 (5.0-8.0) 01/18/17 13:54 Ur Specific [place] 1.017 (1.003-1.030) 01/18/17 13:54 Urine Protein Negative mg/dL (NEGATIVE) 01/18/17 13:54 Urine Glucose (UA) 3+ mg/dL (Normal) H 01/18/17 13:54 Urine Ketones Trace mg/dL (NEGATIVE) 01/18/17 13:54 Urine Blood 1+ (NEGATIVE) H 01/18/17 13:54 Urine Nitrate Negative (NEGATIVE) 01/18/17 13:54 Urine Bilirubin Negative (NEGATIVE) 01/18/17 13:54 Urine Urobilinogen Normal mg/dL (0.2-1.0) 01/18/17 13:54 Ur Leukocyte Esterase Neg Byron/uL (Negative) 01/18/17 13:54 Urine WBC (Auto) 1 /hpf (0-5) 01/18/17 13:54 Urine RBC (Auto) 4 /hpf (0-3) H 01/18/17 13:54 Attending/Attestation - Attestation I have personally seen and examined this patient.: Yes I have fully participated in the care of the patient.: Yes I have reviewed all pertinent clinical information, including history, physical exam and plan: Yes Notes (Text): 01/21/17 08:19 Patient was seen and examined at bedside with the resident. Patient is status post cholecystectomy and is comfortable with no abdominal pain or distress. Patient has had a bowel movement. He is tolerating diet. Patient cleared for discharge by surgery. We will discharge the patient home. I agree with the discharge note by the resident.
[2017-01-20 15:54] VITALS: BP 136/78; PULSE 84; TEMP 98.7; O2SAT 96
--- NOTE | 2017-01-20 22:07 | OP ---
PROCEDURE DATE: 01/19/2017 PREOPERATIVE DIAGNOSIS: Acute cholecystitis. POSTOPERATIVE DIAGNOSIS: Acute cholecystitis. PROCEDURE: Laparoscopic cholecystectomy. SURGEON: Dr. Morris. CAN SOLDERER: Dr. Burgess and Dr. Sin. TYPE OF ANESTHESIA: General. ANESTHESIOLOGIST: Dr. Hernandes; DOCUMENT MANAGER, Valentina. DESCRIPTION OF PROCEDURE: With the patient in the supine position under adequate general anesthesia, the abdomen was prepped and draped in the usual sterile manner. Veress needle puncture was performed at the umbilicus with insufflation to 15 cm water pressure of CO2 and a 10 mm laparoscopic trocar was inserted via an infraumbilical incision. Under direct vision, additional trocars were inserted in the epigastrium and right costal margin. There was a significant amount of omentum heaped up over the gallbladder in the right upper quadrant and this was taken down first to expose what appeared to be a markedly distended and acutely inflamed gallbladder. The omentum was then further freed from the peritoneal surface of the gallbladder to which it was gently adherent and the gallbladder was aspirated of 30 mL of dark bile allowing the fundus to be grasped and elevated. The omentum was cleared further down towards the infundibular portion of the gallbladder and the infundibulum was grasped and retracted laterally. The cystic duct was identified and dissected. It was carried down towards the connection with the common bile duct. The cystic duct was then triply clipped and divided. The cystic artery was similarly identified and then dissected. It was triply clipped and divided and the gallbladder was dissected free of the liver bed using electrocautery. The liver bed was more friable due to acute inflammation. The liver bed was inspected for hemostasis prior to completion of the dissection and a small piece of Surgicel was positioned in one area where there was some oozing noted. The dissection was then completed. The gallbladder was placed in a specimen retrieval bag and removed via the umbilical port site. The right upper quadrant was irrigated and suctioned and no ongoing bleeding was identified. The pneumoperitoneum was released and the trocars were removed. The umbilical port site was closed with a [id number] fascial suture of 0-Vicryl. All incisions were closed with 4-0 Monocryl subcuticular sutures and Steri-Strips. Dry sterile dressings were applied. The patient tolerated the procedure well and transferred to the recovery room in stable condition. Estimated blood loss for the procedure was 30 mL. Padma Morris MD
== END 2017-01-20 17:43 | disposition home or self-care (01) | DRG 494 ==
LOC: C.ER 12:38 → C.3T 20:20
PROVIDERS: ADMIT Internal Medicine; ATTEND Internal Medicine
PROC: 0FT44ZZ Resection of Gallbladder, Percutaneous Endoscopic Approach (ICD-10-PCS; principal; 2017-01-19 14:00)
DX: K80.00 Calculus of gallbladder with acute cholecystitis without obstruction (principal); I10 Essential (primary) hypertension; E11.9 Type 2 diabetes mellitus without complications